=== PATIENT | female | born 1955 | race Caucasian/White ===

== ENCOUNTER → 2016-10-02 | Day surgery (SDC) | payer BC | END | disposition home or self-care (01) | LOC: SDCH 08:24 | DX: Z12.11 Encounter for screening for malignant neoplasm of colon (principal); I10 Essential (primary) hypertension; M19.90 Unspecified osteoarthritis, unspecified site; Z80.0 Family history of malignant neoplasm of digestive organs; Z98.84 Bariatric surgery status; Z87.01 Personal history of pneumonia (recurrent); Z98.51 Tubal ligation status | CPT/HCPCS: J2704 ==